=== PATIENT | female | born 1980 | race Caucasian/White ===

== ENCOUNTER 2017-03-09 03:01 | Emergency (ER) | payer SELFPAY ==
[~2017-03-09] VITALS: Ht 157.5 cm; Wt 59.0 kg
[2017-03-09] MEDS ORDERED: PNV1TABL76 PO (05:06)
[2017-03-09] MEDS ORDERED: CITRIC ACID/SODIUM CITRATE SOLN 30ML UDC PO NR (05:45)
[2017-03-09] MEDS ORDERED: ACETAMINOPHEN 325MG TABLET PO ONE (07:15)
[2017-03-09 07:49] LABS: GLUCOSE URINE NEGATIVE (NEGATIVE); KETONES URINE NEGATIVE (NEGATIVE); LEUKOCYTE ESTERASE URINE TRACE (NEGATIVE); NITRITE URINE NEGATIVE (NEGATIVE); OCCULT BLOOD URINE NEGATIVE (NEGATIVE); PROTEIN URINE NEGATIVE (NEGATIVE); SPECIFIC GRAVITY URINE 1.008 (1.005-1.030); UROBILINOGEN URINE 0.2 E.U./dL (0.2-1.0)
[2017-03-09 07:54] LABS: CLARITY URINE SL HAZY (CLEAR); COLOR URINE YELLOW (YELLOW)
[2017-03-09 08:37] LABS: BASOPHILS % 0.3 % (0.0-2.0); EOSINOPHILS % 0.7 % (0.0-5.0); HEMATOCRIT. 34.4 % (36.0-48.0); HEMOGLOBIN. 11.2 g/dL (12.0-16.0); LYMPHOCYTES % 13.9 % (20.0-50.0); MEAN CORPUSCULAR HEMOGLOBIN 30.2 pg (28.0-32.0); MEAN CORPUSCULAR VOLUME 92.4 fL (81.0-99.0); MEAN PLATELET VOLUME 7.6 fl (7.4-10.4); MONOCYTES % 4.5 % (2.0-8.0); NEUTROPHILS % 80.6 % (40.0-76.0); PLATELET 313 x1000/uL (130-400); RED BLOOD CELL COUNT 3.72 mill/uL (4.2-5.4); RED CELL DISTRIBUTION WIDTH 14.9 % (11.6-14.6)
[2017-03-09 08:38] VITALS: BP 98/61
[2017-03-09 08:41] LABS: CHLORIDE 106 mEq/L (98-107)
[2017-03-09 08:46] LABS: D-DIMER 0.64 mg/L FEU (<0.50); INR 0.9; PARTIAL THROMBOPLASTIN TIME 23.9 sec (23.4-31.0); PROTHROMBIN TIME 9.9 sec (9.4-11.6)
[2017-03-09 08:57] LABS: CARBON DIOXIDE 23 mEq/L (21-32)
[2017-03-09] MEDS ORDERED: ACETAMINOPHEN 325MG TABLET PO SCH (09:00)
[2017-03-09 09:02] LABS: B-HCG QUANTITATIVE 5691 mIU/mL (<3)
== END 2017-03-09 10:00 | disposition left against medical advice (07) ==
LOC: ER 04:15 → UNDOADMOB 05:01 → L&D 05:01 → ER 10:00
DX: O26.893 Other specified pregnancy related conditions, third trimester (principal); R07.81 Pleurodynia; N64.4 Mastodynia; M54.5 Low back pain; Z3A.26 26 weeks gestation of pregnancy
CPT/HCPCS: 36415; 80048; 81001; 84702; 85025; 85379; 85610; 85730; 86850; 86900; 86901; 93005; 99285; Z7610